=== PATIENT | female | born 1985 | race African-American/Black ===

== ENCOUNTER 2024-08-17 14:07 | Emergency (ER) | payer OTHER, SELFPAY ==
[2024-08-17 14:10] VITALS: BP 142/79; PULSE 68; RESP 16; TEMP 36.1; O2SAT 100; BMI 29.2
--- NOTE | 2024-08-17 14:10 | ED_ITS ---
HPI - Skin/Abscess/Foreign Bdy General Chief complaint: Burn/Smoke Inhalation Stated complaint: Burn- R Wrist/ Hand Time Seen by Provider: 08/17/24 14:45 Source: patient Mode of arrival: ambulatory Limitations: no limitations History of Present Illness ED Provider: Kristi Harley PA-C HPI narrative: Patient is a 39 year old assigned female at with no reported medical history presenting to the emergency department today with right wrist and hand pain after a burn. Patient states that 3 days ago she was frying chicken for her children when she burned her hand and wrist in oil. Patient states that it had blistered but now the blisters have opened. Patient denies any dizziness, lightheadedness, abdominal pain, nausea, vomiting, fever, chills, blurry vision, double vision, loss of vision, chest pain, difficulty breathing, shortness of breath, back pain, night sweats, pain with urination, increased urinary frequency, increased urinary urgency, blood in her urine or stool, syncope or a near syncopal episode, bowel incontinence, bladder incontinence, or any other complaints at this time. Onset (ago): day(s) (3) Relieving factors: none Exacerbating factors: none Related Data Allergies Allergy/AdvReac Type Severity Reaction Status Date / Time No Known Allergies Allergy Verified 08/17/24 14:13 Review of Systems 2 Constitutional: Constitutional: Reports no additional constitutional complaints, Denies chills, Denies fever(s) and Denies night sweats Eyes: Eyes: Reports no additional eye complaints, Denies blurry vision, Denies change in vision, Denies diplopia, Denies eye discharge, Denies loss of vision and Denies eye pain ENT: Denies dizziness Cardiovascular: Cardiovascular: Reports no additional cardiovascular complaints, Denies chest pain, Denies lightheadedness, Denies Loss of Consciousness and Denies dyspnea Respiratory: Respiratory: Reports no additional respiratory complaints and Denies dyspnea Gastrointestinal: Gastrointestinal: Reports no additional gastrointestinal complaints, Denies abdominal pain, Denies melena, Denies hematochezia, Denies change in bowel habits and Denies change in stool character Genitourinary: Genitourinary: Denies hematuria, Denies urinary frequency, Denies dysuria, Denies urinary incontinence, Denies urinary hesitancy and Denies urinary urgency Musculoskeletal: Musculoskeletal: Reports no additional musculoskeletal complaints, Denies numbness and Denies tingling Comments: burn to the right wrist and hand Neurologic: Denies dizziness, Denies loss of vision, Denies numbness and Denies tingling Psychiatric: Psychiatric: Reports no additional psychiatric complaints Endocrine: Endocrine: Reports no additional endocrine complaints Hematologic/Lymphatic: Hematologic/Lymphatic: Reports no additional hematologic/lymphatic complaints Allergic/Immunologic: Allergic/Immunologic: Reports no additional allergic/immunologic complaints PMFSH Past Medical History Attestation statement: The following information was validated with the patient. Source: old records reviewed and nursing notes reviewed Social History Social History Smoked in Last 30 Days: No Use of substances other than those prescribed or required for medical reasons: No Advance Directives: No Advance Directives Information Provided: Yes Do you have a plan to hurt others: No Plan Patient : No Physical Exam 2 Vital Signs: Vital Signs: Last Vital Signs Temp 97.1 F 08/17/24 16:06 Pulse 65 08/17/24 16:06 Resp 16 08/17/24 16:06 BP 132/66 08/17/24 16:06 Pulse Ox 100 08/17/24 16:06 O2 Del Method Room Air 08/17/24 16:06 BMI result Body Mass Index 29.2 Const: General: cooperative, no acute distress, alert and awake Nutritional Appearance: well nourished Orientation/consciousness: patient oriented x3 HEENT: Head: Yes normal to inspection and Yes atraumatic Ears: hearing grossly normal bilaterally and external ears normal General nose exam: Normal external nose present, no nasal discharge noted and no epistaxis Face and sinus: Yes normal facial exam, No abrasion and No laceration Mouth: Normal oral and palatal mucosa present, no drooling and no muffled voice Eyes: General: appearance normal, both eyes and all related structures P eriorbital: periorbital findings normal Eyelids: Yes eyelids normal C onjunctivae: conjunctivae normal Pupils: Equal, round and reactive pupils present EOM: EOMs intact bilaterally Neck: Neck: Yes normal visual inspection, Yes full ROM and Yes no lymphadenopathy Resp: Effort & Inspection: normal respiratory effort and able to speak in complete sentences Neuro: General: patient oriented x3, moves all extremities and CN's II-XI intact bilaterally Cranial nerves: Yes Equal, round and reactive pupils present Cognition (Neuro): normal cognition Extrem: Other: General: Yes full ROM and Yes capillary refill normal Psych: Appearance: grossly normal Mental Status: mental status grossly normal Affect: normal affect Attitude: cooperative Thought process: N ormal thought process present Thought content: Normal thought content present Insight: Good insight present (Psych) Course Course Course Narrative: 08/17/24 1411 SAMMY Mckinney This is a Rapid Medical Examination (RME) performed by Tim Pop PA-C in triage. Full HPI, ROS, assessment and treatment plan per primary provider in the Main ED. Hx: 39 yo F here for eval of burn to right wrist sustained 4 days ago while attemping to [employer] chicken. reports the hot oil splashed onto her wrist. [facility] was discharged home - hold to put aloe on it. no improvement in symptoms. area appears red/ painful now. called PCP who advised her to come to the ED. tdap not UTD. PE/vitals: partial thickness burn noted to dorsal aspect right wrist with popped blister, not circumfrential. Plan: tdap booster, debridement Medications Administered Discontinued Medications Generic Name Dose Route Start Last Admin Trade Name Freq PRN Reason Stop Dose Admin Diphtheria/Tetanus/Acell Pertussis 0.5 ml 08/17/24 14:13 08/17/24 14:45 Diphth,Pertus(Acell),Tet Adult 0.5 Ml Syringe IM 08/17/24 14:14 0.5 ml .ONCE ONE Administration Medical Decision Making Medical Decision Making [facility] Narrative: Patient is a 39 year old assigned female at with no reported medical history presenting to the emergency department today with right wrist and hand pain after a burn. Patient's physical exam was as noted in the physical exam portion of this note. I explained my physical exam findings to the patient. I answered all questions asked by the patient. Patient brought up to date on tetanus. Patient's burn was debreaded then dressed with bacitracin and non-stick gauze. Patient's PMS was intact prior to and after wound debreadment and dressing. I stressed the importance of the patient taking her medication as directed (either prescribed or as the over the counter packaging recommends). I stressed the importance of the patient following up with her primary care provider and the wound center. I stressed the importance of the patient returning to the emergency department immediately if her symptoms were to worsen or if she were to develop any dizziness, shortness of breath, difficulty breathing, chest pain, blurry vision, loss of vision, nausea, vomiting, abdominal pain, fever, chills, back pain, or any other complaints. Patient verbalized agreement and understanding with this treatment plan and discharge. Differential Diagnosis Differential Diagnoses: The differential diagnosis associated with the presentation includes Superficial burn Admission/Observation Consideration of admission/observation: Escalation of care including admission/observation considered Patient would have been admitted to the hospital had her clinical presentation warranted hospital admission. Procedures Burn Care/Dressing RUE: Debridement Necessary: Yes Type of Dressing: Antibiotic Ointment and Non-Stick Neurovascular Functions Intact After Dressing Application: Yes Patient Tolerated Procedure: well Additional Comments: Discharge Plan Discharge Clinical Impression: Superficial burn Patient Disposition: Home, Self-Care Instructions: Flash Burn of Skin (ED) Additional Instructions: Perform daily wound checks and dressing changes. Follow up with the wound center. Follow up with a primary care provider. Return to the emergency department immediately if your symptoms worsen or if you develop any numbness, tingling, dizziness, shortness of breath, difficulty breathing, chest pain, blurry vision, loss of vision, nausea, vomiting, abdominal pain, fever, chills, back pain, or any other complaints. L If you do not have a primary care provider - call any of the below numbers to establish and follow up with a primary care provider. [facility] ([place]) [phone] [place] [address], [address] [facility] ([facility]) [phone] [place] [address], [address] [facility], [address] [facility] ([address] [place]) [phone] [place] [address], [address] [facility], [address] [facility] ([place]) [phone] [place] [address], [address] [facility], [address] [facility] [phone] [address] [facility], [address] Please see the information below about our Patient Portal. If you are not yet enrolled in the [facility] Patient Portal, you will receive an enrollment email invitation following your visit to any [facility] setting. You may also self-enroll in the Patient Portal by visiting our website: [email or web address] The following information is required to access the Patient Portal: - Your [facility] Medical Record Number - Your personal home email address (must match what is in your electronic medical record, Registration staff can assist with this) - Name - Date of Capabilities of the Patient Portal: - Message some providers - View upcoming appointments - Access your health summary, medical history, and visit history - View current conditions and allergies - View procedure and lab results - View your medications, including guidelines, side effects, and precautions - Complete pre-appointment questionnaires requested by your provider - Ready summary reports of your office visits and procedures To access the Patient Portal Mobile [employer], follow these directions: - Search [employer] in the [employer] Store or [employer] Store - Download the [employer]rish - Search for [facility] - Enter your login/password Referrals: [facility] Management [Provider Group] Referral Note: Call to establish and follow up with the wound center. Interventions: ED Discharge Assessment Last Done: 08/17/24 16:06 Discharge Date/Time: 08/17/24 16:07 Print Language: Setswana
[2024-08-17] MEDS: Diphth,Pertus(ACell),Tet Adult 0.5 ML SYRINGE IM (14:45)
--- OUTSIDE RECORDS SUMMARY | 2024-08-17 15:13 | XMS_ITS | Clinical Summary ---
Author Organization [facility] Address [address] [place] [address] Phone Care Team Providers Care Flexo Folder Gluer Operator Name Role Phone Luis Eduardo Funez MD Primary Care Provider [phone] Family History Medical History Relation Name Comments Breast cancer Mother Relation Name Status Comments Mother Social History Tobacco Use Types Packs/Day Years Used Date Smoking Tobacco: Never Assessed Comments No Sex and Gender Information Value Date Recorded Sex Assigned at Not on file Legal Sex Female 6:22 PM EST Gender Identity Not on file Sexual Orientation Not on file Obstetrics History Para Term AB IAB SAB Ectopic Multiple Livin g Live Births 2 Last Filed Vital Signs Vital Sign Reading Time Taken Comments Blood Pressure - - Pulse - - Temperature - - Respiratory Rate - - Oxygen Saturation - - Inhaled Oxygen Concentration - - Weight 74.8 kg (165 lb) 01/30/2024 3:22 PM EST Height 157.5 cm (5' 2 ) 01/30/2024 3:22 PM EST Body Mass Index 30.18 01/30/2024 3:22 PM EST Plan of Treatment Health Maintenance Due Date Last Done Comments DTaP,Tdap,and Td Vaccines (1 - Tdap) 08/06/2003 Hepatitis B Vaccines (1 of 3 - 19+ 3-dose series) 08/06/2003 Depression Screening 01/23/2022 HIV Screening 01/23/2022 Hepatitis C Screening 01/23/2022 Social Influencers of Health Screening 01/23/2022 COVID-19 Vaccine (3 - season) 2023 11/05/2020, 10/07/2020 Influenza Vaccine (Season Ended) 2024 Breast Cancer Screening 02/13/2026 02/14/20 24, 01/30/2024, 07/27/2022, Additional history exists Cervical Cancer Screening: Pap Smear 03/20/2027 03/20/2024 HIB Vaccines Aged Out No longer eligi ble based on patient's age to complete this topic HPV Vaccines Aged Out No longer eligi ble based on patient's age to complete this topic Hepatitis A Vaccines Aged Out No long er eligible based on patient's age to complete this topic IPV Vaccines Aged Out No longer eligi ble based on patient's age to complete this topic MMR Vaccines Aged Out No longer eligi ble based on patient's age to complete this topic Meningococcal ACWY Vaccine Aged Out N o longer eligible based on patient's age to complete this topic Meningococcal B Vaccine Aged Out No l onger eligible based on patient's age to complete this topic Pneumococcal Vaccine: Pediatrics (0 to 5 Years) and At-Risk Patients (6 to 64 Years) Aged Out No longer eligible based on patient's age to complete this topic RSV Immunization Patients Under 20 months Aged Out No longer eligible based on patient's age to complete this topic Varicella Vaccines Aged Out No longer eligible based on patient's age to complete this topic Procedures Procedure Name Priority Date/Time Associated Diagnosis Comments PAP SMEAR Routine 03/20/2024 12:00 AM EST Encounter for gynecological examination (general) (routine) without abnormal findings MG MAMMO DIAGNOSTIC ADDL VIEWS LEFT Routine 02/14/2024 11:05 AM EST Breast calcification, left from Last 3 Months or Most Recently Relevant to Health Maintenance Results * Pap smear (03/20/2024 12:00 AM EST) Interpretation Negative for intraepithelial lesion or malignancy 03/23/2024 2:21 PM [facility] General Categorization Negative 03/23/2024 2:21 PM [facility] Other Findings Shift in cristo suggestive of bacterial vaginosis 03/23/2024 2:21 PM [facility] LMP 03/12/2024 03/23/2024 2:21 PM [facility] Specimen Adequacy Satisfactory for evaluation, endocervical/manley sformation zone component present 03/23/2024 2:21 PM EST [facility] Pap Methodology Liquid Based Pap Test 03/23/2024 2:21 PM EST [facility] Disclaimer The Pap test is a screening test which carries an inherent false negative rate. These test results should be correlated with the patient's clinical findings and history. This Pap test was processed using an automated screening system. Technical cytopathology services provided by [facility], at [address] [place] [address] (CLIA # [id number]/Candice Fermin MD, Carpet Mechanic.) 03/23/2024 2:21 PM EST [facility] Console Pap Interpretation Reported 03/23/2024 2:21 PM EST [facility] Brushing/Spatula Cervix uteri structure / Unknown 03/20/2024 03/21/2024 8:09 AM EST us Debra Herron MD LAB CYTOLOGY ORDERABLES Final Result [facility] [address] [place] [address], * MG Mammo Diagnostic Addl Views Left (02/14/2024 11:05 AM EST) Anatomical Region Laterality Modality Breast Left Mammography 02/14/2024 10:5 9 AM EST Impressions 02/14/2024 11:04 AM EST There is no mammographic evidence of malignancy. BI-RADS CATEGORY: 2 - BENIGN RECOMMENDATION: Screening bilateral mammogram is recommended in 1 year. Mammo Location: [facility], Center for [facility], [address] [facility] [address] -------- FINAL REPORT -------- Dictated By: Marcos Kessler Dictated Date: 02/14/2024 10:59 ET Assigned Physician: Marcos Kessler Reviewed and Electronically Signed By: Marcos Kessler Signed Date: 02/14/2024 11:04 ET Workstation ID: [id number] Transcribed By: Self Edit Transcribed Date: 02/14/2024 10:59 ET Narrative 02/14/2024 11:04 AM EST CLINICAL: The patient is a 38 years Female. Screening mammography performed 01/30/2024 demonstrated a group of microcalcifications at the 4:00 position of the left breast 4 cm from the nipple. The patient now presents for supplementary imaging. COMPARISON: Most recently 01/30/2024 and most remotely 07/07/2020. TECHNIQUE: Digital mammography of the left breast in spot magnification CC and true lateral projections is performed in the [employer] 2000-D unit. Computer aided detection utilizing the iCAD system was utilized. FINDINGS: The study demonstrates the presence of a few scattered tiny benign-appearing microcalcifications. No true cluster is now seen there is therefore no evidence of malignancy here. TISSUE DENSITY: There are scattered areas of fibroglandular density. (BI-RADS category B) Procedure Note Marcos Kessler MD - 02/14/2024 CLINICAL: The patient is a 38 years Female. Screening mammographyperformed 01/30/2024 demonstrated a group of microcalcifications at the4:00 position of the left breast 4 cm from the nipple. The patient nowpresents for supplementary imaging. COMPARISON: Most recently 01/30/2024 and most remotely 07/07/2020. TECHNIQUE: Digital mammography of the left breast in spot magnification CCand true lateral projections is performed in the [employer] 2000-Dunit. Computer aided detection utilizing the iCAD system was utilized. FINDINGS: The study demonstrates the presence of a few scattered tinybenign- appearing microcalcifications. No true cluster is now seen thereis therefore no evidence of malignancy here. TISSUE DENSITY: There are scattered areas of fibroglandular density.(BI-RADS category B) IMPRESSION: There is no mammographic evidence of malignancy. BI-RADS CATEGORY: 2 - BENIGN RECOMMENDATION: Screening bilateral mammogram is recommended in 1 year. Mammo Location: [facility], [facility] for [facility], [address] [place] [id number] -------- FINAL REPORT -------- Dictated By: Marcos Kessler Dictated Date: 02/14/2024 10:59 ET Assigned Physician: Marcos Kessler Reviewed and Electronically Signed By: Marcos Kessler Signed Date: 02/14/2024 11:04 ET Workstation ID: [id number] Transcribed By: Self Edit Transcribed Date: 02/14/2024 10:59 ET Luis Eduardo Funez MD IMG BI PROCEDURES Final R esult from Last 3 Months or Most Recently Relevant to Health Maintenance Insurance [facility] Care Teams Flexo Folder Gluer Operator Relationship Specialty Start Date End Date Luis Eduardo Funez MD [address] [place] [phone] PCP - General Internal Medicine 01/17/24
[2024-08-17 16:02] VITALS: BP 132/66; PULSE 65; RESP 16; TEMP 36.2; O2SAT 100
[2024-08-17 16:06] VITALS: BP 132/66; PULSE 65; RESP 16; TEMP 36.2; O2SAT 100
== END 2024-08-17 16:07 | disposition home or self-care (01) ==
PROVIDERS: Emergency Provider Emergency Medicine
DX: T23.291A Burn of second degree of multiple sites of right wrist and hand, initial encounter (principal); X10.2XXA Contact with fats and cooking oils, initial encounter; Y93.G3 Activity, cooking and baking; Y92.010 Kitchen of single-family (private) house as the place of occurrence of the external cause; Y99.8 Other external cause status; Z23 Encounter for immunization
CPT/HCPCS: 16020; 90471; 90715; 99283; 99284

== ENCOUNTER 2024-08-22 08:06 | Outpatient (RCR) | payer OTHER, SELFPAY | END 2024-09-04 16:14 | disposition home or self-care (01) | LOC: HO.WCC 08:06 | PROVIDERS: Visit Provider Surgery | DX: T23.291A Burn of second degree of multiple sites of right wrist and hand, initial encounter (principal); T31.0 Burns involving less than 10% of body surface; X10.2XXA Contact with fats and cooking oils, initial encounter; Y93.G3 Activity, cooking and baking | CPT/HCPCS: 16020; 99214 ==